=== PATIENT | male | born 1990 | race Caucasian/White ===

== ENCOUNTER 2016-08-03 20:54 | Emergency (ER) | payer OTHER | END 2016-08-04 00:31 | disposition home or self-care (01) | LOC: ER 20:54 | DX: R07.81 Pleurodynia (principal); S12.9XXD Fracture of neck, unspecified, subsequent encounter; V43.62XD Car passenger injured in collision with other type car in traffic accident, subsequent encounter; Z93.0 Tracheostomy status; F17.220 Nicotine dependence, chewing tobacco, uncomplicated; Z88.1 Allergy status to other antibiotic agents; Z79.899 Other long term (current) drug therapy | CPT/HCPCS: 71100; 99283 ==